=== PATIENT | female | born 1950 | race Caucasian/White ===

== ENCOUNTER 2019-03-12 21:35 | Inpatient (IN) | payer OTHER ==
[~2019-03-12] VITALS: Ht 157.5 cm; Wt 73.0 kg
[2019-03-12] MEDS ORDERED: [UNRECOGNIZED DRUG - CODE] IJ (21:58)
[2019-03-12] MEDS ORDERED: ACET-2154 PO (21:58)
[2019-03-12] MEDS ORDERED: BISA10SU61 RC (21:58)
[2019-03-12] MEDS ORDERED: THYR90TA PO (21:58)
[2019-03-12] MEDS ORDERED: ALBU2.5V38 IH (21:58)
[2019-03-12] MEDS ORDERED: DEXT50DI8 IV (21:58)
[2019-03-12] MEDS ORDERED: METO5SOL19 IV (22:21)
[2019-03-12] MEDS ORDERED: METO-295 PO (22:21)
[2019-03-12] MEDS ORDERED: MAGN400O6 PO (22:21)
[2019-03-12] MEDS ORDERED: MELA1TAB23 PO (22:21)
[2019-03-12] MEDS ORDERED: POLY17PO4 PO (22:21)
[2019-03-12] MEDS ORDERED: SENN-18 PO (22:21)
[2019-03-12] MEDS ORDERED: PROC5TAB12 PO (22:21)
[2019-03-12] MEDS ORDERED: ONDA2VIA IV (22:21)
[2019-03-12] MEDS ORDERED: ONDA4TAB11 PO (22:21)
[2019-03-12] MEDS ORDERED: DOCU-141 PO (22:21)
--- NOTE | 2019-03-12 22:29 | NUR ---
Pt. admitted to [facility], under care of Dr. Locke/Dr. Obey Benjamin. Diagnsis: Psychosis. 5150 Hold DTS Belongs List completed. MRSA swab done.
[2019-03-12] MEDS ORDERED: MAG HYDROX/AL HYDROX/SIMETH 30 ML LIQUID UDC PO PRN (23:15)
[2019-03-12] MEDS ORDERED: BLOOD SUGAR DIAGNOSTIC 1 EACH STRIP VI ONE (23:15)
[2019-03-12] MEDS ORDERED: MAGNESIUM HYDROXIDE 30 ML LIQUID UDC PO PRN (23:15)
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
[2019-03-12] MEDS: ACETAMINOPHEN 325 MG TABLET PO PRN (23:54)
[2019-03-12] MEDS: TEMAZEPAM 7.5 MG CAPSULE PO PRN (23:54)
--- NOTE | 2019-03-12 23:55 | NUR ---
PATIENT WAS GIVEN A SHOWER, SKIN ASSESSMENT WAS DONE, A MASS OF APPROX 5CM X 5 CM WAS NOTED IN HER UPPER MID CHEST, JUST BELOW HER NECK. MASS IS TENDER TO THE TOUCH; HOWEVER, NO REDNESS, NO DISCOLORATION, NO DRAINAGE WAS NOTED. PATIENT STATED THAT SHE HAD A BIOPSY YESTERDAY AT [facility] (BRONCHOSCOPY). SHE IS AWAITING FOR PATHOLOGY RESULTS. TYLENOL 650MG PO PRN WAS GIVEN FOR HEADACHES AND TEMAZEPAM 7.5 MG WAS ALSO GIVEN FOR INSOMNIA. WILL CONTINUE TO MONITOR.
[2019-03-13 07:34] LABS: BILIRUBIN,TOTAL 0.4 mg/dL (0.2-1.0); CREATININE 0.9 mg/dL (0.6-1.3); POTASSIUM 3.8 mmol/L (3.5-5.1); TOTAL PROTEIN, SERUM 7.6 g/dL (6.4-8.2)
[2019-03-13 07:35] LABS: BASOPHILS # (AUTO) 0.1 K/uL (0.0-8.0); BASOPHILS % (AUTO) 0.5 % (0.0-2.0); EOSINOPHILS # (AUTO) 0.5 K/uL (0.0-0.7); EOSINOPHILS % (AUTO) 4.2 % (0.0-7.0); HEMATOCRIT 33.7 % (31.2-41.9); HEMOGLOBIN 11.3 g/dL (10.9-14.3); LYMPHOCYTES # (AUTO) 1.6 K/uL (20.0-40.0); MEAN CORPUSCULAR HEMOGLOBIN 27.8 uug (24.7-32.8); MEAN CORPUSCULAR HGB CONC 34 g/dL (32.3-35.6); MONOCYTES # (AUTO) 1.2 K/uL (2.0-10.0); MONOCYTES % (AUTO) 10.6 % (0.0-11.0); NEUTROPHILS % (AUTO) 70.7 % (38.5-71.5); PLATELET COUNT (AUTO) 244 K/uL (179-408); RED BLOOD CELL COUNT(AUTO) 4.06 MIL/uL (3.63-4.92); WHITE BLOOD COUNT (AUTO) 11.3 K/uL (3.8-11.8)
[2019-03-13] MEDS: LORAZEPAM 1 MG TABLET PO PRN (07:45)
[2019-03-13] MEDS: ACETAMINOPHEN 325 MG TABLET PO PRN ×3 (07:45→20:12)
[2019-03-13 07:49] VITALS: BP 122/90
--- NOTE | 2019-03-13 09:48 | NUR ---
Social Work Note/Family Contact: pipe out worker contacted patients brother Akhil ([phone]) and wanted to gather collateral but was unable to and left a voicemail.
[2019-03-13 09:58] LABS: *BILIRUBIN,URIN NEGATIVE (NEGATIVE); *BLOOD, URINE NEGATIVE (NEGATIVE); *CLARITY,URINE CLEAR (CLEAR); *COLOR,URINE YELLOW (YELLOW); *KETONES,URINE NEGATIVE (NEGATIVE); *UROBILINOGEN,URINE 0.2 E.U./dl (NORMAL); LEUKOCYTE ESTERASE ,URINE NEGATIVE (NEGATIVE); NITRITE, URINE NEGATIVE (NEGATIVE); UGLUCOSE NEGATIVE (NEGATIVE)
--- NOTE | 2019-03-13 10:42 | NUR ---
Social Work Note/Initial Discharge Plan: Patient currently resides at [address] [place] [address]; ([phone]) in a condo. Per patient, upon discharged she would like to go back home. glassworker will work with the patient and the MD regarding appropriate discharge plan. glassworker will form a safe and proper discharge.
[2019-03-13] MEDS: NICOTINE 14 MG/24HR PATCH TD SCH (11:15)
--- NOTE | 2019-03-13 11:20 | NUR ---
Social Work Note/Intake: mastic worker spoke with intake Pita regarding patient requiring clinicals. Pita will follow up with authorization. This medical technical writer faxed patients clinicals to Pita.
--- NOTE | 2019-03-13 11:25 | NUR ---
Social Work Note/Substance Abuse Intervention: Patient was provided with a brief substance abuse intervention and referred to [facility] , [facility] , and [facility] .
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
[2019-03-13] MEDS ORDERED: Medication Not On Formulary EA (Thyroid (Armour Thyroid) 90 MG) PO SCH (13:30)
[2019-03-13] MEDS: THYROID 60 MG TABLET PO SCH ×2 (13:45→14:20)
--- NOTE | 2019-03-13 14:19 | NUR ---
Social Work Note/Individual Therapy: derrick worker met with patient for brief counseling. Patient expressing thoughts such as "wishing to in sleep". This poem writer assessed for suicidal ideation, but none were reported. Patient denies SI. derrick worker will follow up with patient regularly.
--- NOTE | 2019-03-13 15:48 | NUR ---
Social Work Note: structural worker followed up with fidelina Lema and she addressed that she is working on patients authorization. Per Pita, she will sends patients clinicals and this financial writer will follow up on Saturday.
--- NOTE | 2019-03-13 16:06 | NUR ---
Social Work Note/UR Note: Per Intake Pita information regard to patients insurance: "On patient Alaina Case(1950) [id number], I faxed clinicals to [facility](P: [phone]) & received authorization for the Dr. Jolley is [phone] s/w [place]. Clinicals to be faxed everyday (F: [phone]). Faxed clinicals to Shiraz @ [facility] for hospital authorization (P: [phone] / F: [phone]). Hoping to receive authorization before 5pm."
[2019-03-13 16:19] VITALS: BP 121/72
--- NOTE | 2019-03-13 17:35 | NUR ---
PATIENT REMAIN CALM AND COOPERATIVE, COMPLIANT WITH MEDICATION
[2019-03-13] MEDS: MIRTAZAPINE 15 MG TABLET PO SCH (20:12)
[2019-03-13 21:16] VITALS: BP 150/85
[2019-03-14] MEDS: THYROID 60 MG TABLET PO SCH (07:27)
[2019-03-14 07:30] VITALS: BP 120/76
[2019-03-14] MEDS: NICOTINE 14 MG/24HR PATCH TD SCH ×3 (08:38→08:44)
[2019-03-14] MEDS: ACETAMINOPHEN 325 MG TABLET PO PRN ×3 (08:39→22:31)
[2019-03-14] MEDS: LORAZEPAM 1 MG TABLET PO PRN (14:14)
[2019-03-14 16:00] VITALS: BP 110/70
[2019-03-14 20:54] VITALS: BP 139/69
[2019-03-14] MEDS: MIRTAZAPINE 15 MG TABLET PO SCH (22:00)
[2019-03-15] MEDS: THYROID 60 MG TABLET PO SCH (07:00)
[2019-03-15 08:30] VITALS: BP 131/80
[2019-03-15] MEDS: NICOTINE 14 MG/24HR PATCH TD SCH (09:00)
[2019-03-15] MEDS: ACETAMINOPHEN 325 MG TABLET PO PRN ×2 (09:06→21:14)
--- NOTE | 2019-03-15 14:48 | NUR ---
Patient still depressed. Crying at times and feeling afraid of " My test results". Denies SI , continuing to monitor closely for safety. Patient has been in day room and socializing with other patients today.
[2019-03-15 15:10] VITALS: BP 149/76
--- NOTE | 2019-03-15 17:38 | NUR ---
GPS: Patient asked for her house felix to be release to her sister, removed from valuables and have it signed by the patient, patient release he house felix to her sister (Chiquita Jeffry [phone]) , sister also ask if the social worker health services could call her tomorrow, will continue f/up on this matter
[2019-03-15] MEDS: MIRTAZAPINE 15 MG TABLET PO SCH (20:02)
[2019-03-15 20:35] VITALS: BP 125/78
[2019-03-15] MEDS: TEMAZEPAM 7.5 MG CAPSULE PO PRN (21:14)
[2019-03-16] MEDS: THYROID 60 MG TABLET PO SCH (06:06)
[2019-03-16 07:30] VITALS: BP 130/78
[2019-03-16] MEDS: NICOTINE 14 MG/24HR PATCH TD SCH (08:18)
--- NOTE | 2019-03-16 08:18 | NUR ---
Social Work Note: Per intake Pita she stated, "On patient Alaina Case(1950) [id number], I faxed clinicals to [facility](P: [phone]) & received authorization for the Dr. Jolley is [phone] s/w [place]. Clinicals to be faxed everyday (F: [phone]). I have faxed clinicals to Shiraz @ [facility] for hospital authorization (P: [phone] / F: [phone]). I am hoping to receive authorization before 5pm" during the weekend.
--- NOTE | 2019-03-16 08:19 | NUR ---
Social Work Note/UR Note: orchid worker faxed patients psychiatric H & P notes and progress notes to [facility] (F: [phone]) and will fax regularly.
--- NOTE | 2019-03-16 08:53 | NUR ---
Received patient awake in her assigned bed, alert and oriented. Bed is in low and locked position. Patient is able to perform self care and ADL's independently, able to ambulate independently. Patient is encouraged to communicate needs appropriately to staff and participate in unit therapeutic milieu. Will continue to monitor.
[2019-03-16] MEDS: ACETAMINOPHEN 325 MG TABLET PO PRN (10:17)
[2019-03-16 15:27] VITALS: BP 115/81
[2019-03-16] MEDS: TRAMADOL HCL 50 MG TABLET PO PRN (18:09)
[2019-03-16 20:04] VITALS: BP 145/81
[2019-03-16] MEDS: MIRTAZAPINE 15 MG TABLET PO SCH (20:06)
[2019-03-16] MEDS ORDERED: TRAMADOL HCL 50 MG TABLET PO SCH (22:00)
[2019-03-17] MEDS: THYROID 60 MG TABLET PO SCH (06:04)
[2019-03-17 08:00] VITALS: BP 116/63
[2019-03-17] MEDS: NICOTINE 14 MG/24HR PATCH TD SCH (09:00)
[2019-03-17] MEDS: TRAMADOL HCL 50 MG TABLET PO PRN ×2 (09:05→18:24)
--- NOTE | 2019-03-17 09:30 | NUR ---
Received patient awake, alert and oriented x3 in her assigned bed. Bed is in low and locked position. Patient is able to ambulate independently, and able to perform self care and ADL's independently. Patient is cooperative and redirectable with staff but is anxious, quiet, withdrawn, and appears depressed and tearful. Patient is preoccupied, fearful, and worried about her medical condition. Patient is medication adherent, no adverse reaction noted. Patient has appropriate interaction with others. Patient is able to communicate her needs to staff. Provided with education about impulse control, verbalizes understanding of education. Will continue to monitor.
[2019-03-17] MEDS: ACETAMINOPHEN 325 MG TABLET PO PRN (09:59)
--- NOTE | 2019-03-17 11:00 | NUR ---
Social Work Note/UR Note: tin worker faxed patients psychiatric H & P notes and progress notes to [facility] (F: [phone]) and will fax regularly.
--- NOTE | 2019-03-17 14:56 | NUR ---
Social Work Note/Family Contact: construction ironworker spoke with patients sister Jasmine ([phone]) (office:[phone]) wanted more update on patients medical condition.
[2019-03-17 15:00] VITALS: BP 115/55
--- NOTE | 2019-03-17 15:27 | NUR ---
Social Work Note/Individual Therapy: bottling room worker met with patient for brief counseling. Patient presented tearful and emotional. Patient expressed family issues and concerns with her health. bottling room worker provided emotional support. bottling room worker educated patient in regards to her condition.
--- NOTE | 2019-03-17 15:54 | NUR ---
Social Work Note: Per patients sister Jasmine ([phone]) requested to speak to Dr. Gene Mac. This editorial writer notifed doctor at 3:55PM.
[2019-03-17] MEDS: MIRTAZAPINE 15 MG TABLET PO SCH (20:18)
[2019-03-17] MEDS: TEMAZEPAM 7.5 MG CAPSULE PO PRN (21:40)
[2019-03-17 21:55] VITALS: BP 132/80
--- NOTE | 2019-03-17 22:30 | NUR ---
received to care, lying in bed, pleasant upon approach. denies SI, but admits to "still feeling depressed". compliant with medications, and staff direction. remains isolative in her room, but interacts well with her room mate. PRN restoril was given at 2139, for insomnia. as of 2229, she appears to be asleep. no distress noted. will continue to monitor closely.
--- NOTE | 2019-03-18 06:00 | NUR ---
slept 7.75 hours, total.
[2019-03-18] MEDS: THYROID 60 MG TABLET PO SCH (06:15)
[2019-03-18 07:30] VITALS: BP 116/74
[2019-03-18] MEDS: NICOTINE 14 MG/24HR PATCH TD SCH (08:52)
[2019-03-18] MEDS: LORAZEPAM 1 MG TABLET PO PRN (08:52)
--- NOTE | 2019-03-18 08:59 | NUR ---
Social Work Note/UR Note: medical office worker faxed patients psychiatric H & P notes and progress notes to [facility] (F: [phone]) and will fax regularly.
--- NOTE | 2019-03-18 12:07 | NUR ---
Social Work Note: transition social worker contacted [facility] ([phone]) and spoke to Agata and sent release of authorization form and faxed it ([phone]). This check writer salesperson requested patients medical records.
--- NOTE | 2019-03-18 13:39 | NUR ---
Social Work Note/Coordination of Care: quality worker spoke with Neil from [facility] ([phone]) and addressed that social director Alta will find outpatient psychiatrist appointment for patient and will follow up with this functional tester typewriters.
[2019-03-18 16:01] VITALS: BP 115/67
[2019-03-18 20:00] VITALS: BP 139/71
[2019-03-18] MEDS: MIRTAZAPINE 15 MG TABLET PO SCH (20:24)
[2019-03-18] MEDS: TRAMADOL HCL 50 MG TABLET PO PRN (20:33)
--- NOTE | 2019-03-18 22:00 | NUR ---
received to care, lying in bed, pleasant upon approach. denies SI, but admits to "feeling depressed". compliant with medications, and staff direction. remains isolative in her room. PRN tramadol was given at around 1999, for lower back pain. as of 2199, she appears to be asleep. no distress noted. will continue to monitor closely.
--- NOTE | 2019-03-19 06:00 | NUR ---
slept 8.0 hours, total. assisted with am care, and shower. no distress noted.
[2019-03-19] MEDS: THYROID 60 MG TABLET PO SCH (06:26)
[2019-03-19 07:30] VITALS: BP 125/79
--- NOTE | 2019-03-19 08:06 | NUR ---
Social Work Note/UR Note: curing room worker faxed patients psychiatric H & P notes and progress notes to [facility] (F: [phone]) and will fax regularly.
[2019-03-19] MEDS: NICOTINE 14 MG/24HR PATCH TD SCH (08:09)
[2019-03-19] MEDS: TRAMADOL HCL 50 MG TABLET PO PRN ×2 (08:12→21:02)
--- NOTE | 2019-03-19 10:14 | NUR ---
Social Work Note/UR Note: roller shop utility worker spoke to Neil ([phone]) (F: [phone]) and stated that patient will be discharged 03/20/2019 and will need home health services along with outpatient psychiatrist appointment.
--- NOTE | 2019-03-19 10:25 | NUR ---
Social Work Note/Family Contact: sanitation worker cleaning machinery spoke with patients brother Akhil ([phone]) who stated that he will pick patient up around 12PM on 03/20/2019.
--- NOTE | 2019-03-19 10:34 | NUR ---
Social Work Note/Coordination of Care: workers' compensation magistrate spoke with Lacie and scheduled an appointment with patients candy wrapping machine operator Dr. Khoa Mari for 03/23/19 at 11:30AM. Addendum: 03/19/19 at 1035 by CHELLE GIBBONS This typewriter ribbon winder faxed ([phone]) patients psychiatric notes and progress notes.
--- NOTE | 2019-03-19 13:47 | NUR ---
Social Work Note/PC Hearing Notification: pipe assembly worker contacted patients sister Jasmine, ([phone]) and notified patients probable cause of hearing today.
--- NOTE | 2019-03-19 15:04 | NUR ---
Social Work Note/Firearms Report: Escrow Manager completed and submitted a [employer] firearms report for 5250 grave disability certification. A copy of report has been placed in patient chart.
--- NOTE | 2019-03-19 15:58 | NUR ---
Social Work Note/UR Note: general farmworker spoke to Alta ([phone]) (F: [phone]) who arranged outpatient psychiatrist appointment for patient with Dr. Julian for April 09 at 3:30PM.
[2019-03-19 16:00] VITALS: BP 128/71
[2019-03-19] MEDS ORDERED: MIRTAZAPINE 15 MG TABLET PO SCH (21:00)
[2019-03-19 21:32] VITALS: BP 122/70
--- NOTE | 2019-03-19 22:00 | NUR ---
received to care, lying in bed, isolative, but pleasant upon approach. remains depressed, but denies being suicidal. PRN tramadol was given at 2101, for neck/ lower back pain. as of 2199, she appears to be asleep. no distress noted. will continue to monitor closely.
--- NOTE | 2019-03-20 06:00 | NUR ---
slept 8.0 hours, total.
[2019-03-20] MEDS: THYROID 60 MG TABLET PO SCH (06:39)
[2019-03-20 07:30] VITALS: BP 111/72
[2019-03-20] MEDS: TRAMADOL HCL 50 MG TABLET PO PRN (07:39)
--- NOTE | 2019-03-20 08:37 | NUR ---
Social Work Note/UR Note: campaign worker received a phone call from Alta from [facility] ([phone]) ext [phone] and stated that patient is approved for home health services through [facility] ([phone]), authorization: [id number] and stated that they will call patient for evaluation.
[2019-03-20] MEDS: NICOTINE 14 MG/24HR PATCH TD SCH (08:39)
--- NOTE | 2019-03-20 08:40 | NUR ---
Social Work Note/Discharge: Patient will be discharged home to [address] [place] [address] [address]. Patient will be picked up by brother Akhil ([phone]) at 12PM. Per Akhil, ([phone]) is aware and agreeable to patients discharge. Upon discharge, patient appear to be calm, cooperative and happy to be going home. Patient denies suicidal and homicidal ideation. Patient will follow up with Dr. Khoa Mari (horn player) [address] [facility] [address], [place] [address]; ([phone]) on March 23 at 11:30AM patient will be following up with Dr. Julian (psychiatrist) at [address] [place] [address], [address] [id number]; ([phone]) on April 09 at 3:30PM. Home health services through [facility] ([phone]) has been approved authorization: [id number] and stated that patient will receive a phone call for evaluation. Patient was provided with outpatient mental health resources to [facility] , and the National Suicide Prevention Lifeline . Patient presented with euthymic mood and congruent affect.
--- NOTE | 2019-03-20 12:15 | NUR ---
Gps/Inspector Water Pollution Control- Patients' brother nancy in to pickling operator patient , reviewed discharged instructions, , prescriptions, safety, skin care, diet, f/u with Primary Medical Doctor , ( Dr Khoa Mari), Dr Julian (Psychiatrist) both verbalized understanding. All belongings given back to patient. Patient in good spirit, no new c/o offered.
== END 2019-03-20 12:35 | disposition home health service (06) | DRG 885 ==
LOC: ER 21:37 → GPS 22:31
PROVIDERS: ADMIT Psychiatry & Neurology Psychiatry; ATTEND Nurse Practitioner Acute Care
DX: F33.2 Major depressive disorder, recurrent severe without psychotic features (principal); E44.1 Mild protein-calorie malnutrition; C34.01 Malignant neoplasm of right main bronchus; C79.51 Secondary malignant neoplasm of bone; R91.8 Other nonspecific abnormal finding of lung field; G43.909 Migraine, unspecified, not intractable, without status migrainosus; E03.9 Hypothyroidism, unspecified; E78.5 Hyperlipidemia, unspecified; Z87.891 Personal history of nicotine dependence; R73.9 Hyperglycemia, unspecified
CPT/HCPCS: 36415; 70450; 73502; 85025; 87086; 93005; A4663